=== PATIENT | female | born 1980 | race Two or more races ===

== ENCOUNTER 2023-03-20 21:34 | Emergency (ER) | payer OTHER ==
[~2023-03-20] VITALS: Ht 152.4 cm; Wt 79.5 kg
[2023-03-20 21:40] VITALS: O2SAT 100
[2023-03-20] MEDS ORDERED: FAMOTIDINE 20MG TABLET PO ONE (23:15)
[2023-03-20] MEDS ORDERED: PREDNISONE 20MG TABLET PO ONE (23:15)
[2023-03-20] MEDS ORDERED: DIPHENHYDRAMINE 25MG CAPSULE PO ONE (23:15)
[2023-03-21] MEDS ORDERED: HYDR45CR12 TP (00:18)
[2023-03-21] MEDS ORDERED: EPIN0.3P3 IM (00:18)
[2023-03-21] MEDS ORDERED: DIPH103G TP (00:18)
[2023-03-21 00:20] VITALS: BP 132/74; PULSE 77; RESP 18; TEMP 98.6
== END 2023-03-21 00:24 | disposition home or self-care (01) ==
LOC: ER 21:34
DX: T78.40XA Allergy, unspecified, initial encounter (principal); Z88.5 Allergy status to narcotic agent; X58.XXXA Exposure to other specified factors, initial encounter
CPT/HCPCS: 99284; 81025; Q0163; J7512